=== PATIENT | female | born 1955 | race Caucasian/White ===

== ENCOUNTER 2018-07-01 09:08 | Outpatient (CLI) | payer OTHER | END 2018-07-01 09:09 | disposition home or self-care (01) | LOC: LAB 09:08 | PROVIDERS: ATTEND Internal Medicine | DX: E11.9 Type 2 diabetes mellitus without complications (principal); E78.5 Hyperlipidemia, unspecified; M54.10 Radiculopathy, site unspecified; Z90.49 Acquired absence of other specified parts of digestive tract | CPT/HCPCS: 36415; 83036 ==

== ENCOUNTER 2018-11-18 09:50 | Outpatient (CLI) | payer OTHER ==
[2018-11-18 11:00] LABS: Hemoglobin 12.6 gm/dl (10.1-14.3); Mean Corpuscular HGB Conc 33 % (30-34); Mean Corpuscular Volume 85 fl (79-97); Platelet Count 256 K/mm3 (140-440); Red Blood Count 4.44 M/mm3 (3.65-5.03); Red Cell Distribution Width 15.9 % (13.2-15.2)
[2018-11-18 11:19] LABS: Alanine Aminotransferase 18 units/L (7-56); Albumin 4.7 g/dL (3.9-5); BUN/Creatinine Ratio 23; Blood Urea Nitrogen 14 mg/dL (7-17); Calcium 10.1 mg/dL (8.4-10.2); Hemolysis Index 2; LDL Cholesterol,Direct 104 mg/dL (50-130)
[2018-11-18 11:32] LABS: Chol/HDL Ratio 2.98 %; HDL Cholesterol 65 mg/dL (40-59)
[2018-11-21 10:17] LABS: Vitamin D, 25-OH, D2 7 ng/mL
== END 2018-11-18 09:51 | disposition home or self-care (01) ==
LOC: LAB 09:50
PROVIDERS: ATTEND Internal Medicine
DX: Z13.21 Encounter for screening for nutritional disorder (principal); E11.65 Type 2 diabetes mellitus with hyperglycemia; E78.5 Hyperlipidemia, unspecified
CPT/HCPCS: 36415; 80053; 80061; 82306; 82607; 83036; 84443; 85027

== ENCOUNTER 2019-02-18 10:39 | Outpatient (CLI) | payer OTHER ==
[2019-02-18 11:53] LABS: Chol/HDL Ratio 3.84 %
[2019-02-18 12:28] LABS: Creatinine,Urine 19.9 mg/dL (0.1-20.0)
[2019-02-18 12:35] LABS: Microalbumin/Creatinine Ratio 60.3 ug/mg
== END 2019-02-18 10:40 | disposition home or self-care (01) ==
LOC: LAB 10:39
PROVIDERS: ATTEND Internal Medicine
DX: E78.5 Hyperlipidemia, unspecified (principal); E11.9 Type 2 diabetes mellitus without complications
CPT/HCPCS: 36415; 80061; 82043; 83036

== ENCOUNTER 2019-02-27 08:47 | Outpatient (CLI) | payer OTHER ==
--- NOTE | 2019-02-27 09:39 | Mammography Report ---
DIGITAL RIGHT DIAGNOSTIC MAMMOGRAM WITH CAD, WITHOUT TOMOSYNTHESIS 02/27/2019 INDICATION: 92.8 RT BREAST. Recall for right asymmetry on the MLO view. TECHNIQUE: Digital right mammographic imaging was performed. This examination was interpreted with the benefit of Computer-aided Detection analysis. COMPARISON: 04/29/2018 Breast Density: The breasts are heterogeneously dense, which may obscure small masses. FINDINGS: Right lateral medial and spot compression MLO views are negative. Satisfactory effacement o f asymmetry. IMPRESSION: No mammographic evidence of malignancy. Follow up recommendation: Routine BI-RADS Category 1: Negative. A "normal" or negative report should not discourage follow up or biopsy of a clinically significant f inding. A written summary of these findings will be mailed to the patient. The patient will be entered into a mammography reporting system which will generate a reminder letter for the patient's next appointmen t at the appropriate interval. According to the [employer], yearly mammograms are recommended starting at age 40 and continuing as long as a woman is in good health. Breast MRI is recommended for women with an yolanda roximately 20-25% or greater lifetime risk of breast cancer, including women with a strong family his tory of breast or ovarian cancer and women who have been treated for Hodgkin's disease. Signer Name: Federico Simon MD Signed: 02/27/2019 9:35 AM Workstation Name: [id number]
== END 2019-02-27 08:48 | disposition home or self-care (01) ==
LOC: MAMMO 08:47
PROVIDERS: ATTEND Internal Medicine
DX: R92.8 Other abnormal and inconclusive findings on diagnostic imaging of breast (principal)

== ENCOUNTER 2020-04-12 11:46 | Outpatient (CLI) | payer OTHER ==
--- NOTE | 2020-04-12 13:21 | XRay Report ---
LUMBOSACRAL SPINE 5 VIEWS INDICATION: RADICULOPATHY SITE UNSPECIFIED. COMPARISON: None. IMPRESSION: Normal alignment. Mild disc space narrowing and marginal spurring is identified at L4-5 . Moderate disc space narrowing and marginal spurring is identified at L5-S1. The remaining disc leve ls are within normal limits. The facet joints are unremarkable. The oblique images demonstrate no ana dence for pars defects or high-grade neural foraminal narrowing. The sacrum and SI joints are unremar kable. No acute osseous or soft tissue abnormality. RIGHT FEMUR 2 VIEWS INDICATION: RADICULOPATHY SITE UNSPECIFIED. COMPARISON: None. IMPRESSION: No osseous or soft tissue abnormality is detected. No significant joint pathology at th e hip or knee. Signer Name: Edis Bee Jr, MD Signed: 04/12/2020 1:17 PM Workstation Name: [id number]
== END 2020-04-12 11:47 | disposition home or self-care (01) ==
LOC: XRAY 11:46
PROVIDERS: ATTEND Internal Medicine
DX: M47.26 Other spondylosis with radiculopathy, lumbar region (principal); M46.06 Spinal enthesopathy, lumbar region
CPT/HCPCS: 72110

== ENCOUNTER 2021-01-03 12:04 | Outpatient (CLI) | payer OTHER ==
[2021-01-03 12:48] LABS: Basophils % (Auto) 0.7 % (0.0-1.8); Eosinophils % (Auto) 0.9 % (0.0-4.3); Hematocrit 38.3 % (30.3-42.9); Hemoglobin 12.4 gm/dl (10.1-14.3); Lymphocytes # (Auto) 1.8 K/mm3 (1.2-5.4); Lymphocytes % (Auto) 32.5 % (13.4-35.0); Mean Corpuscular HGB Conc 32 % (30-34); Mean Corpuscular Volume 86 fl (79-97); Monocytes # (Auto) 0.5 K/mm3 (0.0-0.8); Monocytes % (Auto) 8.1 % (0.0-7.3); Platelet Count 244 K/mm3 (140-440); Red Blood Count 4.45 M/mm3 (3.65-5.03); Red Cell Distribution Width 15.8 % (13.2-15.2)
[2021-01-03 13:29] LABS: Alanine Aminotransferase 18 units/L (7-56); Albumin 4.4 g/dL (3.9-5); Blood Urea Nitrogen 12 mg/dL (7-17); Calcium 10.3 mg/dL (8.4-10.2); Chol/HDL Ratio 2.69 %; HDL Cholesterol 52 mg/dL (40-59); Hemolysis Index 4; LDL Cholesterol,Direct 74 mg/dL (50-130)
[2021-01-03 13:34] LABS: BUN/Creatinine Ratio 20
== END 2021-01-03 12:05 | disposition home or self-care (01) ==
LOC: LAB 12:04
PROVIDERS: ATTEND Internal Medicine
DX: Z13.29 Encounter for screening for other suspected endocrine disorder (principal); Z00.00 Encounter for general adult medical examination without abnormal findings; E11.9 Type 2 diabetes mellitus without complications; E78.5 Hyperlipidemia, unspecified; E55.9 Vitamin D deficiency, unspecified; I10 Essential (primary) hypertension
CPT/HCPCS: 36415; 80053; 80061; 82306; 83036; 84443; 85025

== ENCOUNTER 2021-05-16 09:24 | Outpatient (CLI) | payer OTHER | END 2021-05-16 09:25 | disposition home or self-care (01) | LOC: LAB 09:24 | PROVIDERS: ATTEND Internal Medicine | DX: E11.9 Type 2 diabetes mellitus without complications (principal) | CPT/HCPCS: 36415; 83036 ==